=== PATIENT | female | born 1995 | race Hispanic/Latino ===

== ENCOUNTER → 2017-07-01 | Outpatient (CLI) | payer OTHER ==
--- NOTE | 2017-07-01 14:04 | Diagnostic Imaging Report ---
PROCEDURE:PELVIC ULTRASOUND COMPARISON:None. INDICATIONS:PELVIC PAIN, IRREGULAR CYCLES TECHNIQUE: Grayscale transverse and sagittal transabdominal images were obtained of the pelvis. FINDINGS: UTERUS: Size: 6.3 x 3 x 4.9 cm, normal Orientation: Normal Masses: None ENDOMETRIUM: 1.3 cm, within normal limits. Homogeneous without focal thickening. RIGHT OVARY: Size: 3.5 x 2.3 x 3 cm Masses/Cysts: None. LEFT OVARY: Size: 2.4 x 1.8 x 2.3 cm Masses/Cysts: None. There is trace free fluid within the pelvis. No adnexal masses. CONCLUSION: Normal transabdominal and transvaginal pelvic ultrasound. Dictated by: Rob Sam M.D. on 07/01/2017 at 14:14 Electronically approved by: Rob Sam M.D. on 07/01/2017 at 14:14
== END ==
LOC: US 13:11
PROVIDERS: ATTEND Family Medicine
DX: R10.2 Pelvic and perineal pain (principal)
CPT/HCPCS: 76856

== ENCOUNTER → 2019-02-23 | Outpatient (CLI) | payer OTHER ==
--- NOTE | 2019-02-23 12:44 | Diagnostic Imaging Report ---
EXAM: US ABDOMEN COMPLETE DATE: 02/23/2019 10:35 AM INDICATION: Abdominal pain COMPARISON: None TECHNIQUE: Transverse and longitudinal caballero scale and color doppler sonographic images of the upper abdomen were obtained. FINDINGS: There is no evidence of fluid or masses seen in the area of clinical concern in the right lower quadrant. LIVER 12.2 cm in the right midclavicular line. Normal echogenicity of the liver with mildly nodular surface contour. SPLEEN 10.6 cm in maximum diameter. Normal echogenicity, no masses. GALLBLADDER No gallbladder wall thickening, distension, stone, or pericholecystic fluid. Negative reported sonographic Benítez's sign. Gallbladder wall measures 2 mm. BILE DUCTS No intra nor extra-hepatic biliary dilation. Common bile duct measures 4 mm. PANCREAS: Limited visualization due to overlying bowel gas. RIGHT KIDNEY: 9.5 cm Echogenicity: Normal Collecting System: No hydronephrosis Stones: None Cyst/Mass: None LEFT KIDNEY: 9.8 cm Echogenicity: Normal Collecting System: No hydronephrosis Stones: None Cyst/Mass: None VESSELS: Aorta: Visualized portions are within normal size limits Inferior Vena Cava: Visualized portions are normal Main Portal Vein: 0.7 cm, normal size with hepatopetal flow. FREE FLUID: None IMPRESSION: No cholelithiasis or sonographic evidence of cholecystitis. No renal calculi or hydronephrosis. Mildly nodular liver surface contour can be seen with early cirrhosis. Signed by: Elo Joy MD on 02/23/2019 12:40 PM
== END ==
LOC: US 10:35
PROVIDERS: ATTEND Family Medicine
DX: R10.9 Unspecified abdominal pain (principal)
CPT/HCPCS: 76700